=== PATIENT | female | born 1965 | race Caucasian/White ===

== ENCOUNTER 2017-12-13 07:28 | Outpatient (CLI) | payer OTHER | END 2017-12-13 07:29 | disposition home or self-care (01) | LOC: BICMRI 07:28 | PROVIDERS: ATTEND Physician Assistant | DX: R10.31 Right lower quadrant pain (principal); K44.9 Diaphragmatic hernia without obstruction or gangrene; N85.8 Other specified noninflammatory disorders of uterus ==

== ENCOUNTER 2017-12-24 07:22 | Outpatient (CLI) | payer OTHER | END 2017-12-24 07:23 | disposition home or self-care (01) | LOC: BICULT 07:22 | PROVIDERS: ATTEND Physician Assistant | DX: R93.8 Abnormal findings on diagnostic imaging of other specified body structures (principal); N83.201 Unspecified ovarian cyst, right side | CPT/HCPCS: 76856 ==

== ENCOUNTER 2018-05-23 14:38 | Outpatient (CLI) | payer OTHER | END 2018-05-23 14:39 | disposition home or self-care (01) | LOC: BICMAMMO 14:38 | PROVIDERS: ATTEND Family Medicine | DX: R92.8 Other abnormal and inconclusive findings on diagnostic imaging of breast (principal); N63.20 Unspecified lump in the left breast, unspecified quadrant | CPT/HCPCS: 77066; G0279 ==

== ENCOUNTER 2019-05-25 08:52 | Outpatient (CLI) | payer OTHER ==
--- NOTE | 2019-05-25 09:31 | MMO ---
Bilateral MAMMO Bilat Screen [facility]. CLINICAL HISTORY: Patient is 54 years old and is seen for screening. The patient has no family history of breast cancer. The patient has no personal history of cancer. The patient has a history of left needle biopsy in 2015 - benign. VIEWS: The views performed were: bilateral craniocaudal with tomosynthesis and bilateral mediolateral oblique with tomosynthesis. FILMS COMPARED: The present examination has been compared to prior imaging studies performed at [facility] on 06/08/2016, 06/13/2016, 06/19/2016 and 05/23/2018. This study has been interpreted with the assistance of computer-aided detection. MAMMOGRAM FINDINGS: There are scattered fibroglandular densities. There is a stable mass with associated calcifications and biopsy clip seen in the left breast. There are no suspicious masses, suspicious calcifications, or new areas of architectural distortion. IMPRESSION: THERE IS NO MAMMOGRAPHIC EVIDENCE OF MALIGNANCY. A ROUTINE FOLLOW-UP MAMMOGRAM IN 1 YEAR IS RECOMMENDED. THE RESULTS OF THIS EXAM WERE SENT TO THE PATIENT. ACR BI-RADS Category 2 - Benign finding MAMMOGRAPHY NOTE: 1. A negative mammogram report should not delay a biopsy if a dominant of clinically suspicious mass is present. 2. Approximately 10% to 15% of breast cancers are not detected by mammography. 3. Adenosis and dense breasts may obscure an underlying neoplasm. Reported by: DACIA RING MD Electonically Signed: [id number]
== END 2019-05-25 08:53 | disposition home or self-care (01) ==
LOC: BICMAMMO 08:52
PROVIDERS: ATTEND Family Medicine
DX: Z12.31 Encounter for screening mammogram for malignant neoplasm of breast (principal)
CPT/HCPCS: 77063; 77067

== ENCOUNTER 2020-05-26 15:25 | Outpatient (CLI) | payer BC ==
--- NOTE | 2020-05-27 08:36 | MMO ---
Bilateral MAMMO Bilat Screen [facility]. CLINICAL HISTORY: Patient is 55 years old and is seen for screening. The patient has no family history of breast cancer. The patient has no personal history of cancer. The patient has a history of left needle biopsy in 2015 - benign. VIEWS: The views performed were: bilateral craniocaudal with tomosynthesis and bilateral mediolateral oblique with tomosynthesis. FILMS COMPARED: The present examination has been compared to prior imaging studies performed at [facility] on 06/13/2016, 06/19/2016, 05/23/2018 and 05/25/2019. This study has been interpreted with the assistance of computer-aided detection. MAMMOGRAM FINDINGS: There are scattered fibroglandular densities. There is a stable mass with associated biopsy clip seen in the left breast. There are no suspicious masses, suspicious calcifications, or new areas of architectural distortion. IMPRESSION: THERE IS NO MAMMOGRAPHIC EVIDENCE OF MALIGNANCY. A ROUTINE FOLLOW-UP MAMMOGRAM IN 1 YEAR IS RECOMMENDED. THE RESULTS OF THIS EXAM WERE SENT TO THE PATIENT. ACR BI-RADS Category 2 - Benign finding MAMMOGRAPHY NOTE: 1. A negative mammogram report should not delay a biopsy if a dominant of clinically suspicious mass is present. 2. Approximately 10% to 15% of breast cancers are not detected by mammography. 3. Adenosis and dense breasts may obscure an underlying neoplasm. Reported by: DACIA RING MD Electonically Signed: [id number]
== END 2020-05-26 15:26 | disposition home or self-care (01) ==
LOC: BICMAMMO 15:25
PROVIDERS: ATTEND Family Medicine
DX: Z12.31 Encounter for screening mammogram for malignant neoplasm of breast (principal); Z91.89 Other specified personal risk factors, not elsewhere classified
CPT/HCPCS: 77063; 77067

== ENCOUNTER 2021-05-26 07:55 | Outpatient (CLI) | payer BC | END 2021-05-26 07:56 | disposition home or self-care (01) | LOC: BICMAMMO 07:55 | PROVIDERS: ATTEND Family Medicine | DX: Z12.31 Encounter for screening mammogram for malignant neoplasm of breast (principal) | CPT/HCPCS: 77063; 77067 ==

== ENCOUNTER 2022-06-21 09:01 | Outpatient (CLI) | payer BC | END 2022-06-21 09:02 | disposition home or self-care (01) | LOC: BICMAMMO 09:01 | PROVIDERS: ATTEND Family Medicine | DX: Z12.31 Encounter for screening mammogram for malignant neoplasm of breast (principal); Z91.89 Other specified personal risk factors, not elsewhere classified | CPT/HCPCS: 77063; 77067 ==

== ENCOUNTER 2023-03-05 17:00 | Outpatient (CLI) | payer BC | END 2023-03-05 17:01 | disposition home or self-care (01) | LOC: SLEEPLAB 17:00 | PROVIDERS: ATTEND Family Medicine | DX: G47.33 Obstructive sleep apnea (adult) (pediatric) (principal); F41.9 Anxiety disorder, unspecified; R06.83 Snoring; R53.83 Other fatigue | CPT/HCPCS: 95800 ==

== ENCOUNTER 2023-03-07 12:50 | Outpatient (CLI) | payer BC | END 2023-03-07 12:51 | disposition home or self-care (01) | LOC: BICCT 12:50 | PROVIDERS: ATTEND Internal Medicine Gastroenterology | DX: R10.12 Left upper quadrant pain (principal); K44.9 Diaphragmatic hernia without obstruction or gangrene; N20.0 Calculus of kidney; J98.11 Atelectasis | CPT/HCPCS: 71260; 74160 ==

== ENCOUNTER 2023-07-03 08:49 | Outpatient (CLI) | payer BC | END 2023-07-03 08:50 | disposition home or self-care (01) | LOC: BICMAMMO 08:49 | PROVIDERS: ATTEND Family Medicine | DX: Z12.31 Encounter for screening mammogram for malignant neoplasm of breast (principal); Z91.89 Other specified personal risk factors, not elsewhere classified | CPT/HCPCS: 77063; 77067 ==

== ENCOUNTER 2024-06-16 06:59 | Outpatient (CLI) | payer BC | END 2024-06-16 07:00 | disposition home or self-care (01) | LOC: BICULT 06:59 | PROVIDERS: ATTEND Family Medicine | DX: N95.0 Postmenopausal bleeding (principal) | CPT/HCPCS: 76856 ==